=== PATIENT | male | born 1970 | race Caucasian/White ===

== ENCOUNTER → 2017-04-01 | Outpatient (CLI) | payer OTHER ==
--- NOTE | 2017-04-01 13:18 | KCIC ---
PQRS Compliance Statement: One or more of the following individualized dose reduction techniques were utilized for this examination: 1. Automated exposure control 2. Adjustment of the mA and/or kV according to patient size 3. Use of iterative reconstruction technique CT MAXILLOFACIAL WO CONTRAST Clinical Indication: Recurrent sinusitis, snoring, deviated septum, difficulty breathing, nasal congestion. Comparison: None. TECHNIQUE: Helical CT imaging of the paranasal sinuses is performed using [place] protocol without IV contrast Findings: There is minimal right and mild left maxillary sinus mucosal thickening inferiorly. The sphenoid sinuses are clear. The ethmoid sinuses are clear. The frontal sinuses are clear. There is no air-fluid level to suggest acute sinusitis. There is rightward deviation of the bony nasal septum. There is opacity at the left infundibular canal. The right ostiomeatal complex is patent. Left middle and inferior meatus are patent. Mastoid air cells are aerated. Ossicular chains appear intact. No obvious opacity the middle ear is seen. No acute facial bone abnormality. The globes and orbits appear intact. IMPRESSION: 1. Left infundibular canal is opacified. The ostiomeatal complexes are otherwise patent. 2. Mucosal thickening of the maxillary sinuses. Paranasal sinuses otherwise clear. 3. Rightward deviation of the bony nasal septum. Electronically signed by: Tahir Hi MD (04/01/2017 12:55 PM)
== END | disposition home or self-care (01) ==
LOC: KCIC CT 10:23
PROVIDERS: ATTEND Otolaryngology Plastic Surgery within the Head & Neck
DX: J32.9 Chronic sinusitis, unspecified (principal); R09.81 Nasal congestion; J34.2 Deviated nasal septum; R06.83 Snoring
CPT/HCPCS: 70486